=== PATIENT | female | born 1950 | race Hispanic/Latino ===

== ENCOUNTER 2024-12-25 11:56 | Emergency (ER) | payer MEDICAID ==
--- NOTE | 2024-12-25 12:52 | RAD REPORT ---
EXAMINATION: CT Thorax Wo Con CLINICAL INDICATION: Female, 74 years old. [facility] left posterior rib/periscapular pain, fall TECHNIQUE: Axial CT scan of the chest without intravenous contrast. Multiplanar reformats were genera nunu and reviewed. One or more of the following dose reduction techniques were used: Automated exposure control, adjustment of the mA and/or kV according patient size, and/or iterative reconstruct ion. Unless otherwise specified, incidental findings do not require dedicated imaging follow-up. COMPARISON: No prior exam. FINDINGS: LOWER NECK: Visualized thyroid gland and soft tissues are normal. LUNGS: The lungs are clear. No evidence of airspace or interstitial process. No worrisome nodules. PLEURA: No pleural effusion. No pneumothorax. . MEDIASTINUM AND LYMPH NODES: No mediastinal mass or fluid collection. Normal size mediastinal, hilar, and axillary lymph nodes. Mild atherosclerotic calcifications of the aortic arch and mild mineralization near the annulus of the aorta. OSSEOUS STRUCTURES AND CHEST WALL: Intact. UPPER ABDOMEN: No significant abnormalities. IMPRESSION: No acute or significant abnormalities. Examination is limited by lack of contrast.
[2024-12-25] MEDS ORDERED: HYDROCODONE/APAP 5/325 MG TAB ONE (13:44)
[2024-12-25] MEDS ORDERED: KETOROLAC 30 MG/ML INJ ONE (13:45)
--- NOTE | 2024-12-25 14:34 | ER ---
Nurse's Notes [facility] Name: Kelly Gu Age: 74 yrs Sex: Female : 1950 Arrival Date: 12/25/2024 Time: 11:56 Bed 10 Private MD: Diagnosis: Contusion of left back wall of thorax Presentation: 12/25 12:22 Chief complaint: Patient states: she fell back off the first step and hit her back on ap3 12/19/24. patient complains of continued pain to her left upper shoulder blade area. patient complains of painful breathing. patient currently rates her pain as a 9/10 on the pain scale. Coronavirus screen: At this time, the client does not indicate any symptoms associated with coronavirus-19. Ebola Screen: No symptoms or risks identified at this time. Initial Sepsis Screen: Does the patient meet any 2 criteria? No. Patient's initial sepsis screen is negative. Does the patient have a suspected source of infection? No. Patient's initial sepsis screen is negative. Risk Assessment: Do you want to hurt yourself or someone else? Patient reports no desire to harm self or others. Onset of symptoms was December 19, 2024. 12:22 Method Of Arrival: Ambulatory ap3 12:22 Acuity: KIMMIE 3 ap3 Triage Assessment: 12:25 General: Appears uncomfortable, Behavior is calm, cooperative, appropriate for age. ap3 Pain: Complains of pain in left scapular area Pain currently is 9 out of 10 on a pain scale. Pain began 12/19/24. Neuro: Level of Consciousness is awake, alert, obeys commands, Oriented to person, place, time, situation, Appropriate for age. Cardiovascular: Patient's skin is warm and dry. Respiratory: Reports pain with respiration Airway is patent Respiratory effort is even, unlabored, Respiratory pattern is regular, symmetrical. Musculoskeletal: Range of motion: intact in all extremities. Historical: - Allergies: 12:25 No Known Allergies; ap3 - Home Meds: 12:29 Trazodone Oral [Active]; ap3 - PMHx: 12:29 Hypercholesterolemia; ap3 - Immunization history:: Client reports receiving the 2nd dose of the Covid vaccine, Flu vaccine is up to date. - Infectious Disease History:: Denies. - Social history:: Smoking status: Patient denies any tobacco usage or history of. - Family history:: not pertinent. - Hospitalizations: : No recent hospitalization is reported. Screenin:[facility] ED Fall Risk Assessment (Adult) History of falling in the last 3 months, ap3 including since admission Yes- single mechanical fall (1 pt) Confusion or Disorientation No (0 pts) Intoxicated or Sedated No (0 pts) Impaired Gait No (0 pts) Mobility Assist Device Used No (0 pt) Altered Elimination No (0 pt) Score/Fall Risk Level 0 - 2 = Low Risk Oriented to surroundings, Maintained a safe environment, Educated pt \T\ family on fall prevention, incl call for assistance when getting out of bed, Assessed \T\ reinforced patient's understanding of fall precautions, Hourly rounding (assess needs \T\ fall precautionary measures) done, Used ambulatory aids as needed (educated on \T\ assisted with). Abuse screen: Denies threats or abuse. Nutritional screening: No deficits noted. Tuberculosis screening: No symptoms or risk factors identified. Assessment: 14:02 General: Appears in no apparent distress. Behavior is calm, cooperative. Pain: Pain hb currently is 8 out of 10 on a pain scale. Neuro: Level of Consciousness is awake, alert, obeys commands, Oriented to person, place, time, situation. Cardiovascular: Patient's skin is warm and dry. Respiratory: Respiratory effort is even, unlabored, Respiratory pattern is regular, symmetrical. GI: No signs and/or symptoms were reported involving the gastrointestinal system. : No signs and/or symptoms were reported regarding the genitourinary system. EENT: No signs and/or symptoms were reported regarding the EENT system. Derm: Skin is pink, warm \T\ dry. Musculoskeletal: Reports mid back pain 06/13. 14:44 Reassessment: Patient appears in no apparent distress at this time. Patient and/or hb family updated on plan of care and expected duration. Pain level reassessed. Patient is alert, oriented x 3, equal unlabored respirations, skin warm/dry/pink. Vital Signs: 12:22 BP 142 / 72; Pulse 62; Resp 18; Temp 97.6; Pulse Ox 100% ; Weight 77.11 kg; Height 6 ap3 ft. 2 in. ; Pain 9/10; 12:22 Body Mass Index 21.83 (77.11 kg, 187.96 cm) ap3 12:22 Pain Scale: Adult ap3 ED Course: 11:59 Patient arrived in ED. mr 11:59 Rahat Laurent MD is Attending Physician. rn 12:25 Triage completed. ap3 12:26 Arm band placed on left wrist. ap3 12:43 CT Chest Wo Con In Process Unspecified. EDMS 13:48 Rosmery Fagan, RN is Primary Nurse. hb 14:03 Patient has correct armband on for positive identification. Provided Education on: hb medications, use of call light . 14:03 No provider procedures requiring assistance completed. Patient did not have IV access hb during this emergency room visit. Administered Medications: 14:01 Drug: HYDROcodone-acetaminophen PO 5 mg-325 mg 1 tabs PO once Route: PO; hb 14:45 Follow up: Response: No adverse reaction hb 14:01 Drug: Ketorolac IM 15 mg IM once Route: IM; Site: left deltoid; hb 14:45 Follow up: Response: No adverse reaction hb Medication: 14:04 VIS not applicable for this client. hb Outcome: 14:33 Discharge ordered by MD. rn 14:44 Discharged to home ambulatory, with significant other, hb 14:44 Condition: stable 14:44 Discharge instructions given to patient, significant other, Instructed on discharge instructions, follow up and referral plans. medication usage, Demonstrated understanding of instructions, follow-up care, medications, Prescriptions given X 1, 14:45 Patient left the ED. hb Signatures: Dispatcher [employer] EDNH Bela Bryant, Reg Reg mr Rahat Laurent MD MD rn Baxter, Heather, RN RN Brynn Morrell RN RN ap3 Corrections: (The following items were deleted from the chart) 12:30 12:29 Home Meds: None; ap3 ap3 12:30 12:29 PMHx: None; ap3 ap3
--- NOTE | 2024-12-25 14:34 | EDPHYS ---
Physician Documentation [facility] Name: Kelly Gu Age: 74 yrs Sex: Female : 1950 Arrival Date: 12/25/2024 Time: 11:56 Bed 10 Private MD: ED Physician Rahat Laurent HPI: 12/25 14:30 This 74 yrs old Female presents to ER via Ambulatory with complaints of Back rn Pain. 14:30 The patient presents with pain that is acute. The symptoms are located in the left rn subscapular area. 14:30 Onset: The symptoms/episode began/occurred 6 day(s) ago. Associated signs and symptoms: rn Pertinent negatives: fever, incontinence, numbness, tingling, urinary retention. Modifying factors: The patient symptoms are alleviated by nothing, the patient symptoms are aggravated by any movement, bending, coughing. Severity of symptoms: At their worst the symptoms were moderate, in the emergency department the symptoms are unchanged. The patient has not experienced similar symptoms in the past. Patient reports fall from standing, was 6 days ago, struck left scapular region on edge of object. No other injury. Reports pain to left periscapular region. No shortness of breath but reports pain with movement and breathing and cough.. Historical: - Allergies: 12:25 No Known Allergies; ap3 - Home Meds: 12:29 Trazodone Oral [Active]; ap3 - PMHx: 12:29 Hypercholesterolemia; ap3 - Immunization history:: Client reports receiving the 2nd dose of the Covid vaccine, Flu vaccine is up to date. - Infectious Disease History:: Denies. - Social history:: Smoking status: Patient denies any tobacco usage or history of. - Family history:: not pertinent. - Hospitalizations: : No recent hospitalization is reported. ROS: 14:30 Constitutional: Negative for fever, chills, and weight loss, Cardiovascular: Negative rn for chest pain, palpitations, and edema, Respiratory: Negative for shortness of breath, cough, wheezing, and pleuritic chest pain, Abdomen/GI: Negative for abdominal pain, nausea, vomiting, diarrhea, and constipation, Back: Positive for left periscapular pain and injury MS/Extremity: Negative for injury and deformity, Skin: Negative for injury, rash, and discoloration, Neuro: Negative for headache, weakness, numbness, tingling, and seizure, Exam: 14:30 Constitutional: This is a well developed, well nourished patient who is awake, alert, rn and in no acute distress. Head/Face: Normocephalic, atraumatic. Neck: No midline cervical tenderness Chest/axilla: No rib tenderness or crepitus anteriorly, left periscapular rib tenderness without crepitus. Cardiovascular: Regular rate and rhythm. No pulse deficits. Respiratory: No increased work of breathing, no retractions or nasal flaring. Back: No spinal tenderness Vital Signs: 12:22 BP 142 / 72; Pulse 62; Resp 18; Temp 97.6; Pulse Ox 100% ; Weight 77.11 kg; Height 6 ap3 ft. 2 in. ; Pain 9/10; 12:22 Body Mass Index 21.83 (77.11 kg, 187.96 cm) ap3 12:22 Pain Scale: Adult ap3 MDM: 11:59 Medical Screening Exam initiated rn 14:30 Differential diagnosis: Rib fracture, rib contusion, pneumothorax. Data reviewed: vital rn signs, nurses notes, radiologic studies, CT scan, and as a result, I will discharge patient. Counseling: I had a detailed discussion with the patient and/or guardian regarding the historical points, exam findings, and any diagnostic results supporting the discharge/admit diagnosis, radiology results, the need for outpatient follow up, to return to the emergency department if symptoms worsen or persist or if there are any questions or concerns that arise at home. Special discussion: I discussed with the patient/guardian in detail that at this point there is no indication for admission to the hospital. It is understood, however, that if the symptoms persist or worsen the patient needs to return immediately for re-evaluation. ED course: CT chest without acute fracture or pneumothorax. Will discharge home with incentive spirometer and return precautions.. 12/25 12:30 Order name: CT Chest Wo Con; Complete Time: 13:26 rn 12/25 14:33 Order name: INCENTIVE SPIROMETRY rn Administered Medications: 14:01 Drug: HYDROcodone-acetaminophen PO 5 mg-325 mg 1 tabs PO once Route: PO; hb 14:45 Follow up: Response: No adverse reaction hb 14:01 Drug: Ketorolac IM 15 mg IM once Route: IM; Site: left deltoid; hb 14:45 Follow up: Response: No adverse reaction hb Disposition Summary: 12/25/24 14:33 Discharge Ordered Notes: Location: Home rn Problem: new rn Symptoms: have improved rn Condition: Stable rn Diagnosis - Contusion of left back wall of thorax rn Followup: rn - With: Private Physician - When: As needed - Reason: Recheck today's complaints, Re-evaluation by your physician Discharge Instructions: - Discharge Summary Sheet rn - Rib Contusion rn - Chest Contusion, Adult rn Forms: - Medication Reconciliation Form rn - Antibiotic rn endoscopy - Prescription Opioid Use rn - Patient Portal Instructions rn - Leadership Thank You Letter rn Prescriptions: - Tramadol 50 mg Oral Tablet - take 1 tablet ORAL route every 8 hours as needed; 12 tablet; Refills: 0, rn Product Selection Permitted Signatures: Dispatcher [employer] EDRahat Menezes MD MD rn Baxter, Heather, RN RN hb Prokisch, Amanda, RN RN ap3 Corrections: (The following items were deleted from the chart) 12:30 12:29 Home Meds: None; ap3 ap3 12:30 12:29 PMHx: None; ap3 ap3
[2024-12-26 05:20] VITALS: BP 142/72; TEMP 97.6; O2SAT 100
== END 2024-12-25 14:45 | disposition home or self-care (01) ==
LOC: ER 11:56
DX: S20.222A Contusion of left back wall of thorax, initial encounter (principal); W10.9XXA Fall (on) (from) unspecified stairs and steps, initial encounter
CPT/HCPCS: 71250; 96372; 99284